=== PATIENT | male | born 1975 | race African-American/Black ===

== ENCOUNTER 2023-06-20 10:46 | Emergency (ER) | payer MEDICAID ==
[~2023-06-20] VITALS: Ht 177.8 cm; Wt 68.0 kg
[2023-06-20 11:10] VITALS: BP 114/81; PULSE 89; RESP 18; TEMP 98.1; O2SAT 100
== END 2023-06-20 12:10 | disposition home or self-care (01) ==
LOC: ER 10:46
DX: L02.31 Cutaneous abscess of buttock (principal); Z98.890 Other specified postprocedural states; Z90.49 Acquired absence of other specified parts of digestive tract
CPT/HCPCS: 99281